=== PATIENT | male | born 1945 | race Caucasian/White ===

== ENCOUNTER 2016-12-08 13:37 | Emergency (ER) | payer MEDICARE, BC ==
[2016-12-08] MEDS ORDERED: Tetan/Diph/Pertus SYR(Tdap)* 0.5 ML SYR(BOOSTRIX) use SYR IM ONE (14:20)
--- NOTE | 2016-12-08 14:26 | UC ---
Skin Complaint HPI - HPI Summary HPI Summary: Stepped on a sewing needle and there is a puncture wound on the bottom of the right foot. He has peripheral neuropathy and DM. Last hga1c is 7.2. They made sure that the entire needle was intact when they pulled it out. - History of Current Complaint Time Seen by Provider: 12/08/16 14:14 Stated Complaint: PUNCTURE TO FOOT Hx Obtained From: Patient, Family/Parking Patroller Onset/Duration: Sudden Onset Skin Exposure Onset/Duration: Hours Ago Timing: Constant Onset Severity: Mild Current Severity: None Location: Discrete Aggravating Factor(s): Nothing Alleviating Factor(s): Nothing Associated Signs & Symptoms: Positive: Negative Related History: Diabetes - Allergy/Home Medications Allergies/Adverse Reactions: Allergies Allergy/AdvReac Type Severity Reaction Status Date / Time No Known Allergies Allergy Verified 12/08/16 14:18 Home Medications: Home Medications See Pt's Med List 12/08/16 12/08/16 [History] Review of Systems Skin: Other - puncture wound right foot as per HPI. he also has me look at a right medial wrist burn wound which is a few days old. He has been keeping it covered. no tenderness. All Other Systems Reviewed And Are Negative: Yes PMH/Surg Hx/FS Hx/Imm Hx Endocrine History: Diabetes - Family History Known Family History: Positive: Other - DM - Social History Lives: With Family Physical Exam Triage Information Reviewed: Yes Appearance: Well-Appearing, No Pain Distress, Well-Nourished Vital Signs Reviewed: Yes Eye Exam: Normal ENT: Positive: Normal ENT inspection Neck: Negative: Nuchal Rigidity Respiratory: Positive: No respiratory distress, No accessory muscle use Cardiovascular: Positive: Brisk Capillary Refill Abdomen Description: Negative: Distended Musculoskeletal: Positive: No Edema Neurological Exam: Normal Neurological: Positive: Alert, Muscle Tone Normal Psychological Exam: Normal Skin Exam: Other - small puncture wound ball of right foot. burn with eschar right wrist without surrounding redness or streaking. Skin: Positive: Other Course/Dx - Diagnoses Provider Diagnoses: burn wound check right wrist. puncture wound right foot. Discharge - Discharge Plan Condition: Good Disposition: HOME Patient Education Materials: Acute Wound Care (ED) Referrals: Patrick NAVARRO,Sarbjit Jorge [Primary Care Provider] - If Needed Additional Instructions: Cover and antibiotic on the right wrist. Epsom salt soaks and bandages of the abdiaziz wounds.
[2016-12-08 14:48] VITALS: BP 172/76
== END 2016-12-08 14:55 | disposition home or self-care (01) ==
LOC: UCCORT 13:37
DX: S91.331A Puncture wound without foreign body, right foot, initial encounter (principal); T23.071A Burn of unspecified degree of right wrist, initial encounter; W26.8XXA Contact with other sharp object(s), not elsewhere classified, initial encounter; X08.8XXA Exposure to other specified smoke, fire and flames, initial encounter
CPT/HCPCS: 90471; 90715; 99202; G0463

== ENCOUNTER 2017-05-27 18:50 | Emergency (ER) | payer MEDICARE, BC ==
[2017-05-27 19:57] VITALS: BP 142/59
--- NOTE | 2017-05-27 20:48 | UC ---
Back Pain HPI - HPI Summary HPI Summary: Per consultants intern "Pt c/o muscle spasm in RIGHT lower back x3 weeks. Pt c/o sharp pain getting worse in lower back w/ twisting/bending motion. Pain better while standing/sitting/at rest. Denies injury to back/heavy lifting. Denies pain radiating. Taking tylenol [id number] prn w/ some pain relief- last taken today 1800. " -pain is isolated at rt low back. there is no radiation. there is no pain in buttocks or down leg. he has b/l peripheral neuropathy. no saddle anesthesia, no loss of bowel or bladder problems. -sx started suddenly 3 wks ago when he was cleaning himself with his right hand after having a bowel movement. he was leaning over to left when this happened. he and his walk 1 mile daily and never hada problem with this. -never had back issues or surgerries, xrays or MRIs. - History of Current Complaint Chief Complaint: UCBackPain Stated Complaint: BACK PAIN Time Seen by Provider: 05/27/17 20:47 Pain Intensity: 8 - Allergies/Home Medications Allergies/Adverse Reactions: Allergies Allergy/AdvReac Type Severity Reaction Status Date / Time No Known Allergies Allergy Verified 05/27/17 19:49 Home Medications: Home Medications Aspirin EC TAB* [Ecotrin EC TAB*] 325 mg DAILY 05/27/17 [History Confirmed 05/27] PMH/Surg Hx/FS Hx/Imm Hx Previously Healthy: Yes Endocrine History: Diabetes, Dyslipidemia Cardiovascular History: Cardiac Disease - Surgical History Surgical History: Yes Surgery Procedure, Year, and Place: vasectomy - Family History Known Family History: Positive: Other - DM - Social History Alcohol Use: None Substance Use Type: None Smoking Status (MU): Former Smoker When Did the Patient Quit Smoking/Using Tobacco: 1976 - Immunization History Most Recent Tetanus Shot: Unknown Review of Systems Constitutional: Negative Skin: Negative Eyes: Negative ENT: Negative Respiratory: Negative Cardiovascular: Negative Gastrointestinal: Negative Genitourinary: Negative Motor: Negative Neurovascular: Negative, Decreased Sensation - b/l feet Musculoskeletal: Other: - RT LBP Neurological: Negative Psychological: Negative Is Patient Immunocompromised?: No All Other Systems Reviewed And Are Negative: Yes Physical Exam Triage Information Reviewed: Yes Appearance: Well-Appearing, No Pain Distress, Well-Nourished - really very pleasant. here with his who is just as pleasant Vital Signs: Initial Vital Signs Temp 98.3 F 05/27/17 19:51 Pulse 58 05/27/17 19:51 Resp 16 05/27/17 19:51 BP 142/59 05/27/17 19:51 Pulse Ox 100 05/27/17 19:51 Vital Signs Reviewed: Yes Eye Exam: Normal Neck exam: Normal Respiratory: Positive: Lungs clear Cardiovascular: Positive: RRR, No Murmur, Pulses Normal Musculoskeletal: Positive: ROM Intact, Other: - Rt low back paraspinal muscle spasm that reproduces pain. l/s spine NT w/ FROM. neg SLR b/l, + 1 patellar and equal b/l. Neurological Exam: Normal Psychological Exam: Normal Skin Exam: Normal Back Pain Course/Dx - Course Course Of Treatment: no xray at this time. sx are c/w muscle spasm in rt low back. no radiation. no sx of sciatica. I recommend xrays and PT if sx increase or persist and they are very agreeable. - Differential Dx/Diagnosis Differential Diagnosis/HQI/PQRI: Strain, Sprain Provider Diagnoses: Rt low back muscle spasm Discharge - Sign-Out/Discharge Documenting (check all that apply): Discharge - Discharge Plan Condition: Stable Disposition: HOME Prescriptions: Cyclobenzaprine (NF) [Cyclobenzaprine 5 MG (NF)] 10 mg PO BID PRN #5 tab PRN Reason: Pain Patient Education Materials: Muscle Spasm (ED) Referrals: Melchor Piña DO [Primary Care Provider] - 5 Days Additional Instructions: -You have been given 10mgs of cyclobenzaprine here tonight as a muscle relaxant. Do not drive within at least 8 hours of taking this medication. -I have given you 10 mgs prescription at the pharmacy. You can take 1/2 to full tablet every 12hrs as needed for pain. -Xrays and Physical therapy may be considered if your symptoms persist. -your symptoms are consistent with a muscle spasm. I do not suspect sciatica or disc pathology based on your symptoms and exam at this time. -You can also use OTC biofreeze or icy hot patches and heat. -You can continue with tylenol for pain as needed. - Billing Disposition and Condition Condition: STABLE Disposition: HOME
[2017-05-27] MEDS ORDERED: Cyclobenzaprine TAB* 10 MG PO ONE (21:09)
== END 2017-05-27 21:27 | disposition home or self-care (01) ==
LOC: UCCORT 18:50
DX: M62.830 Muscle spasm of back (principal); Z87.891 Personal history of nicotine dependence
CPT/HCPCS: 99212; A9270-GY; G0463

== ENCOUNTER 2018-06-13 13:25 | Emergency (ER) | payer MEDICARE, BC ==
--- NOTE | 2018-06-13 17:14 | UC ---
Back Pain HPI - HPI Summary HPI Summary: 72 yo male with left sided LBP x 4 days after doing yard work no bowel or bladder dysfunction had two severe falls on ice during winter did not seek medical care for falls - History of Current Complaint Chief Complaint: UCBackPain Stated Complaint: BACK PAIN Time Seen by Provider: 06/13/18 15:54 Hx Obtained From: Patient Onset/Duration: Gradual Onset, Lasting Days Timing: Constant Severity Initially: Moderate Severity Currently: Moderate Pain Intensity: 4 Pain Scale Used: 0-10 Numeric Back Pain: Is Diffuse Character: Aching, Throbbing Aggravating Factor(s): Movement, Lifting, Bending, Walking Alleviating Factor(s): Rest Associated Signs And Symptoms: Positive: Negative Full Body (No Head): 1 - tender/limited ROM, - SLR, slow/wide based gait - Allergies/Home Medications Allergies/Adverse Reactions: Allergies Allergy/AdvReac Type Severity Reaction Status Date / Time No Known Allergies Allergy Verified 05/27/17 19:49 PMH/Surg Hx/FS Hx/Imm Hx Previously Healthy: Yes Endocrine History: Diabetes Cardiovascular History: Hypertension Neurological History: Other Other Neurological History: diabetic neuropathy - Surgical History Surgical History: Yes Surgery Procedure, Year, and Place: vasectomy - Family History Known Family History: Positive: Other - DM - Social History Alcohol Use: None Substance Use Type: None Smoking Status (MU): Former Smoker When Did the Patient Quit Smoking/Using Tobacco: 1976 - Immunization History Most Recent Tetanus Shot: Unknown Review of Systems All Other Systems Reviewed And Are Negative: Yes Constitutional: Positive: Negative Skin: Positive: Negative Eyes: Positive: Negative ENT: Positive: Negative Respiratory: Positive: Negative Cardiovascular: Positive: Negative Gastrointestinal: Positive: Negative Genitourinary: Positive: Negative Motor: Positive: Negative Neurovascular: Positive: Negative Musculoskeletal: Positive: Decreased ROM - back, Myalgia - back Neurological: Positive: Other - grossly non focal Psychological: Positive: Negative Physical Exam Triage Information Reviewed: Yes Appearance: Well-Appearing, No Pain Distress, Well-Nourished Vital Signs: Initial Vital Signs Temp 98.6 F 04/16/19 15:05 Pulse 92 06/13/18 15:05 Resp 18 06/13/18 15:05 BP 175/71 06/13/18 15:05 Pulse Ox 99 06/13/18 15:05 Vital Signs Reviewed: Yes Eyes: Positive: Conjunctiva Clear ENT: Negative: Hearing grossly normal, Nasal congestion, Nasal drainage, Trismus , Muffled voice, Hoarse voice Neck: Positive: Supple, Nontender Respiratory: Positive: Lungs clear, Normal breath sounds, No respiratory distress, No accessory muscle use Cardiovascular: Positive: RRR Musculoskeletal: Positive: No Edema Neurological: Positive: Alert Psychological Exam: Normal Skin Exam: Normal Back Pain Course/Dx - Differential Dx/Diagnosis Provider Diagnosis: Facet arthritis of lumbar region, Acute myofascial strain of lumbar region Discharge - Sign-Out/Discharge Documenting (check all that apply): Patient Departure All imaging exams completed and their final reports reviewed: Yes - Discharge Plan Condition: Stable Disposition: HOME Prescriptions: Cyclobenzaprine HCl 5 mg PO TID #21 tablet Patient Education Materials: Low Back Strain (ED) Referrals: Melchor Piña DO [Primary Care Provider] - 1 Week Additional Instructions: PT consult - Billing Disposition and Condition Condition: STABLE Disposition: Home
[2018-06-13 17:20] VITALS: BP 139/56
== END 2018-06-13 17:29 | disposition home or self-care (01) ==
LOC: UCCORT 13:25
DX: S39.012A Strain of muscle, fascia and tendon of lower back, initial encounter (principal); X58.XXXA Exposure to other specified factors, initial encounter; Y93.H9 Activity, other involving exterior property and land maintenance, building and construction; Y92.096 Garden or yard of other non-institutional residence as the place of occurrence of the external cause; M46.86 Other specified inflammatory spondylopathies, lumbar region; M47.816 Spondylosis without myelopathy or radiculopathy, lumbar region; E11.40 Type 2 diabetes mellitus with diabetic neuropathy, unspecified; I10 Essential (primary) hypertension; Z87.891 Personal history of nicotine dependence
CPT/HCPCS: 72110; 99212; G0463